=== PATIENT | female | born 1985 | race Caucasian/White ===

== ENCOUNTER 2020-03-21 18:25 | Observation (INO) | payer OTHER ==
[2020-03-21] MEDS ORDERED: SODIUM CHLORIDE 0.9% 500 ML 500 ML IV STA (18:56)
[2020-03-21] MEDS ORDERED: LORazepam 2 MG/ML INJ IV STA ×3 (18:56→23:15)
--- NOTE | 2020-03-21 18:57 | ED ---
General Adult HPI - General Source: patient, RN notes reviewed, old records reviewed Mode of arrival: ambulatory Limitations: no limitations <Damion Estrada - Last Filed: 03/21/20 22:02> <Otilio St - Last Filed: 03/22/20 00:08> - General Chief complaint: Shortness of Breath Stated complaint: Chest pain, side pain Time Seen by Provider: 03/21/20 18:40 - History of Present Illness Initial comments: 34-year-old female presenting for evaluation of dyspnea. Patient has previous, and past medical history including substance abuse, heroin abuse. She admits to recreational marijuana. She states she is feeling quite anxious and having frequent panic attacks. She additionally has a history of pneumothorax status post resection. She also reports a significant weight loss of 60 pounds over the past several months. This was unintentional. She does admit that she was in the psychiatric he for 24 hours with these similar symptoms. (Damion Estrada) - Related Data Home Medications Medication Instructions Recorded Confirmed Unable To Assess [Unable to Assess] 03/21/20 03/21/20 Allergies Allergy/AdvReac Type Severity Reaction Status Date / Time No Known Allergies Allergy Verified 03/21/20 18:29 Review of Systems ROS Other: All systems not noted in ROS Statement are negative. <Damion Estrada - Last Filed: 03/21/20 22:02> ROS Other: All systems not noted in ROS Statement are negative. <Otilio St - Last Filed: 03/22/20 00:08> ROS Statement: Those systems with pertinent positive or pertinent negative responses have been documented in the HPI. Past Medical History Additional Past Medical History / Comment(s): pneumothorax History of Any Multi-Drug Resistant Organisms: None Reported Past Surgical History: Appendectomy Past Psychological History: Anxiety, Panic Disorder, PTSD Smoking Status: Current every day smoker Past Alcohol Use History: None Reported Past Drug Use History: Heroin, Marijuana <Damion Estrada - Last Filed: 03/21/20 22:02> General Exam Limitations: no limitations General appearance: alert, anxious Head exam: Present: atraumatic, normocephalic Eye exam: Present: normal appearance, PERRL Neck exam: Present: normal inspection. Absent: tenderness, meningismus Respiratory exam: Present: normal lung sounds bilaterally. Absent: respiratory distress, wheezes, rales, rhonchi Cardiovascular Exam: Present: normal rhythm, tachycardia GI/Abdominal exam: Present: soft. Absent: distended, tenderness, guarding, rebound Neurological exam: Present: alert, oriented X3, CN II-XII intact. Absent: motor sensory deficit Psychiatric exam: Present: agitated, anxious, suicidal ideation (No suicidal plan but states she cannot imagine living life like this.) Skin exam: Present: warm, dry, intact <Damion Estrada - Last Filed: 03/21/20 22:02> General appearance: alert, appears intoxicated, anxious Head exam: Present: atraumatic, normocephalic, normal inspection Eye exam: Present: normal appearance, PERRL, EOMI. Absent: scleral icterus, conjunctival injection, periorbital swelling ENT exam: Present: normal exam, mucous membranes moist Neck exam: Present: normal inspection. Absent: tenderness, meningismus, lymphadenopathy Respiratory exam: Present: normal lung sounds bilaterally. Absent: respiratory distress, wheezes, rales, rhonchi, stridor Cardiovascular Exam: Present: normal rhythm, tachycardia, normal heart sounds. Absent: systolic murmur, diastolic murmur, rubs, gallop, clicks GI/Abdominal exam: Present: soft, normal bowel sounds. Absent: distended, tenderness, guarding, rebound, rigid Extremities exam: Present: normal inspection, full ROM, normal capillary refill. Absent: tenderness, pedal edema, joint swelling, calf tenderness Back exam: Present: normal inspection Neurological exam: Present: alert, oriented X3, CN II-XII intact Psychiatric exam: Present: agitated, anxious Skin exam: Present: warm, dry, intact, normal color. Absent: rash <Otilio St - Last Filed: 03/22/20 00:08> Course <Damion Estrada - Last Filed: 03/21/20 22:02> <Otilio St - Last Filed: 03/22/20 00:08> Vital Signs 03/21/20 18:29 Temperature 98.3 F Pulse Rate 141 H Respiratory 18 Rate O2 Sat by Pulse 96 Oximetry - Reevaluation(s) Reevaluation #1: 03/21/20 21:26 Patient is hyperverbal, manic, very anxious. Stating she cannot live this way. Her urine drug screen is positive for methamphetamines. Rest of her workup is unremarkable. She has been medically cleared and is currently awaiting EPS evaluation. (Damion Estrada) Reevaluation #2: 03/21/20 2300 Patient has made comments of suicidal ideation to both myself and nursing staff. She will be petitioned and will require EPS evaluation. Case is signed out to Dr. St (Damion Estrada) Reevaluation #3: 03/22/20 00:06 Patient remained significantly altered and difficult to redirect, remains persistently tachycardic with altered mental status and agitated behavior (Otilio St) EKG Findings - EKG Comments: EKG Findings:: EKG: Sinus tachycardia, right atrial enlargement, rate of 106, NE interval 150, QRS duration 84, QTC 488 <Damion Estrada - Last Filed: 03/21/20 22:02> Medical Decision Making - Lab Data Result diagrams: 03/21/20 19:34 03/21/20 19:34 <Damion Estrada - Last Filed: 03/21/20 22:02> - Lab Data Result diagrams: 03/21/20 19:34 03/21/20 19:34 - Radiology Data Radiology results: report reviewed (Chest x-rays negative for acute disease), image reviewed <Otilio St - Last Filed: 03/22/20 00:08> - Medical Decision Making 34 female to be admitted on a medical abdomen with psychiatric consultation regarding significant polysubstance abuse overdose persistent tachycardia admitted for continued hydration and cardiopulmonary monitoring (Otilio St) - Lab Data Lab Results 03/21/20 03/21/20 03/21/20 Range/Units 19:34 19:34 19:34 WBC 11.2 H (3.8-10.6) k/uL RBC 5.54 H (3.80-5.40) m/uL Hgb 16.7 H (11.4-16.0) gm/dL Hct 49.8 H (34.0-46.0) % MCV 89.8 (80.0-100.0) fL MCH 30.2 (25.0-35.0) pg MCHC 33.6 (31.0-37.0) g/dL RDW 12.4 (11.5-15.5) % Plt Count 297 (150-450) k/uL Neutrophils % 63 % Lymphocytes % 28 % Monocytes % 6 % Eosinophils % 1 % Basophils % 1 % Neutrophils # 7.0 (1.3-7.7) k/uL Lymphocytes # 3.1 (1.0-4.8) k/uL Monocytes # 0.7 (0-1.0) k/uL Eosinophils # 0.2 (0-0.7) k/uL Basophils # 0.1 (0-0.2) k/uL PT 10.0 (9.0-12.0) sec INR 1.0 (<1.2) APTT 22.7 (22.0-30.0) sec D-Dimer 0.23 (<0.60) mg/L FEU Sodium 140 (137-145) mmol/L Potassium 3.9 (3.5-5.1) mmol/L Chloride 102 (98-107) mmol/L Carbon Dioxide 25 (22-30) mmol/L Anion Gap 13 mmol/L BUN 22 H (7-17) mg/dL Creatinine 0.73 (0.52-1.04) mg/dL Est GFR (CKD-EPI)AfAm >90 (>60 ml/min/1.73 sqM) Est GFR (CKD-EPI)NonAf >90 (>60 ml/min/1.73 sqM) Glucose 95 (74-99) mg/dL Plasma Lactic Acid Navin (0.7-2.0) mmol/L Calcium 10.9 H (8.4-10.2) mg/dL Magnesium 1.9 (1.6-2.3) mg/dL Total Bilirubin 0.9 (0.2-1.3) mg/dL AST 26 (14-36) U/L ALT 15 (4-34) U/L Alkaline Phosphatase 68 (38-126) U/L Troponin I (0.000-0.034) ng/mL Total Protein 9.3 H (6.3-8.2) g/dL Albumin 5.3 H (3.5-5.0) g/dL Urine Color Urine Appearance (Clear) Urine pH (5.0-8.0) Ur Specific [place] (1.001-1.035) Urine Protein (Negative) Urine Glucose (UA) (Negative) Urine Ketones (Negative) Urine Blood (Negative) Urine Nitrite (Negative) Urine Bilirubin (Negative) Urine Urobilinogen (<2.0) mg/dL Ur Leukocyte Esterase (Negative) Urine RBC (0-5) /hpf Urine WBC (0-5) /hpf Ur Squamous Epith Cells (0-4) /hpf Hyaline Casts (0-2) /lpf Urine Mucus (None) /hpf Urine HCG, Qual (Not Detectd) Urine Opiates Screen (NotDetected) Ur Oxycodone Screen (NotDetected) Urine Methadone Screen (NotDetected) Ur Propoxyphene Screen (NotDetected) Ur Barbiturates Screen (NotDetected) U Tricyclic Antidepress (NotDetected) Ur Phencyclidine Scrn (NotDetected) Ur Amphetamines Screen (NotDetected) U Methamphetamines Scrn (NotDetected) U Benzodiazepines Scrn (NotDetected) Urine Cocaine Screen (NotDetected) U Marijuana (THC) Screen (NotDetected) Serum Alcohol <10 mg/dL 03/21/20 03/21/20 03/21/20 Range/Units 19:34 19:34 19:34 WBC (3.8-10.6) k/uL RBC (3.80-5.40) m/uL Hgb (11.4-16.0) gm/dL Hct (34.0-46.0) % MCV (80.0-100.0) fL MCH (25.0-35.0) pg MCHC (31.0-37.0) g/dL RDW (11.5-15.5) % Plt Count (150-450) k/uL Neutrophils % % Lymphocytes % % Monocytes % % Eosinophils % % Basophils % % Neutrophils # (1.3-7.7) k/uL Lymphocytes # (1.0-4.8) k/uL Monocytes # (0-1.0) k/uL Eosinophils # (0-0.7) k/uL Basophils # (0-0.2) k/uL PT (9.0-12.0) sec INR (<1.2) APTT (22.0-30.0) sec D-Dimer (<0.60) mg/L FEU Sodium (137-145) mmol/L Potassium (3.5-5.1) mmol/L Chloride (98-107) mmol/L Carbon Dioxide (22-30) mmol/L Anion Gap mmol/L BUN (7-17) mg/dL Creatinine (0.52-1.04) mg/dL Est GFR (CKD-EPI)AfAm (>60 ml/min/1.73 sqM) Est GFR (CKD-EPI)NonAf (>60 ml/min/1.73 sqM) Glucose (74-99) mg/dL Plasma Lactic Acid Navin 1.5 (0.7-2.0) mmol/L Calcium (8.4-10.2) mg/dL Magnesium (1.6-2.3) mg/dL Total Bilirubin (0.2-1.3) mg/dL AST (14-36) U/L ALT (4-34) U/L Alkaline Phosphatase (38-126) U/L Troponin I 0.014 (0.000-0.034) ng/mL Total Protein (6.3-8.2) g/dL Albumin (3.5-5.0) g/dL Urine Color Yellow Urine Appearance Cloudy H (Clear) Urine pH 6.0 (5.0-8.0) Ur Specific [place] 1.033 (1.001-1.035) Urine Protein 1+ H (Negative) Urine Glucose (UA) Negative (Negative) Urine Ketones 2+ H (Negative) Urine Blood Moderate H (Negative) Urine Nitrite Negative (Negative) Urine Bilirubin Negative (Negative) Urine Urobilinogen 3.0 (<2.0) mg/dL Ur Leukocyte Esterase Negative (Negative) Urine RBC 9 H (0-5) /hpf Urine WBC 7 H (0-5) /hpf Ur Squamous Epith Cells 4 (0-4) /hpf Hyaline Casts 7 H (0-2) /lpf Urine Mucus Many H (None) /hpf Urine HCG, Qual (Not Detectd) Urine Opiates Screen Not Detected (NotDetected) Ur Oxycodone Screen Not Detected (NotDetected) Urine Methadone Screen Not Detected (NotDetected) Ur Propoxyphene Screen Not Detected (NotDetected) Ur Barbiturates Screen Not Detected (NotDetected) U Tricyclic Antidepress Detected H (NotDetected) Ur Phencyclidine Scrn Not Detected (NotDetected) Ur Amphetamines Screen Detected H (NotDetected) U Methamphetamines Scrn Detected H (NotDetected) U Benzodiazepines Scrn Detected H (NotDetected) Urine Cocaine Screen Not Detected (NotDetected) U Marijuana (THC) Screen Detected H (NotDetected) Serum Alcohol mg/dL 03/21/20 Range/Units 19:34 WBC (3.8-10.6) k/uL RBC (3.80-5.40) m/uL Hgb (11.4-16.0) gm/dL Hct (34.0-46.0) % MCV (80.0-100.0) fL MCH (25.0-35.0) pg MCHC (31.0-37.0) g/dL RDW (11.5-15.5) % Plt Count (150-450) k/uL Neutrophils % % Lymphocytes % % Monocytes % % Eosinophils % % Basophils % % Neutrophils # (1.3-7.7) k/uL Lymphocytes # (1.0-4.8) k/uL Monocytes # (0-1.0) k/uL Eosinophils # (0-0.7) k/uL Basophils # (0-0.2) k/uL PT (9.0-12.0) sec INR (<1.2) APTT (22.0-30.0) sec D-Dimer (<0.60) mg/L FEU Sodium (137-145) mmol/L Potassium (3.5-5.1) mmol/L Chloride (98-107) mmol/L Carbon Dioxide (22-30) mmol/L Anion Gap mmol/L BUN (7-17) mg/dL Creatinine (0.52-1.04) mg/dL Est GFR (CKD-EPI)AfAm (>60 ml/min/1.73 sqM) Est GFR (CKD-EPI)NonAf (>60 ml/min/1.73 sqM) Glucose (74-99) mg/dL Plasma Lactic Acid Navin (0.7-2.0) mmol/L Calcium (8.4-10.2) mg/dL Magnesium (1.6-2.3) mg/dL Total Bilirubin (0.2-1.3) mg/dL AST (14-36) U/L ALT (4-34) U/L Alkaline Phosphatase (38-126) U/L Troponin I (0.000-0.034) ng/mL Total Protein (6.3-8.2) g/dL Albumin (3.5-5.0) g/dL Urine Color Urine Appearance (Clear) Urine pH (5.0-8.0) Ur Specific [place] (1.001-1.035) Urine Protein (Negative) Urine Glucose (UA) (Negative) Urine Ketones (Negative) Urine Blood (Negative) Urine Nitrite (Negative) Urine Bilirubin (Negative) Urine Urobilinogen (<2.0) mg/dL Ur Leukocyte Esterase (Negative) Urine RBC (0-5) /hpf Urine WBC (0-5) /hpf Ur Squamous Epith Cells (0-4) /hpf Hyaline Casts (0-2) /lpf Urine Mucus (None) /hpf Urine HCG, Qual Not Detected (Not Detectd) Urine Opiates Screen (NotDetected) Ur Oxycodone Screen (NotDetected) Urine Methadone Screen (NotDetected) Ur Propoxyphene Screen (NotDetected) Ur Barbiturates Screen (NotDetected) U Tricyclic Antidepress (NotDetected) Ur Phencyclidine Scrn (NotDetected) Ur Amphetamines Screen (NotDetected) U Methamphetamines Scrn (NotDetected) U Benzodiazepines Scrn (NotDetected) Urine Cocaine Screen (NotDetected) U Marijuana (THC) Screen (NotDetected) Serum Alcohol mg/dL Disposition <Damion Estrada N - Last Filed: 03/21/20 22:02> Is patient prescribed a controlled substance at d/c from ED?: No <Otilio St - Last Filed: 03/22/20 00:08> Clinical Impression: Acute anxiety, Suicidal ideation, Depression, Drug-induced psychotic disorder, Acute psychosis, Tachycardia, Altered mental state Disposition: ADMITTED IP TO THIS [facility] Condition: Fair Referrals: None,Stated [Primary Care Provider] - 1-2 days
[2020-03-21 19:46] LABS: Basophils # (A) 0.1 k/uL (0-0.2); Basophils % (A) 1 %; Eosinophils # (A) 0.2 k/uL (0-0.7); Eosinophils % (A) 1 %; HCT 49.8 % (34.0-46.0); HGB 16.7 gm/dL (11.4-16.0); Lymphocytes # (A) 3.1 k/uL (1.0-4.8); Lymphocytes % (A) 28 %; MCH 30.2 pg (25.0-35.0); MCHC 33.6 g/dL (31.0-37.0); MCV 89.8 fL (80.0-100.0); Mean Platelet Volume 6.9; Monocytes # (A) 0.7 k/uL (0-1.0); Monocytes % (A) 6 %; Neutrophils % (A) 63 %; Platelet Count 297 k/uL (150-450); RBC 5.54 m/uL (3.80-5.40); RDW 12.4 % (11.5-15.5); WBC 11.2 k/uL (3.8-10.6)
[2020-03-21 19:57] LABS: ALT 15 U/L (4-34); AST 26 U/L (14-36); African American GFR (CKD) >90 (>60 ml/min/1.73 sqM); Albumin 5.3 g/dL (3.5-5.0); Alcohol <10 mg/dL; Alkaline Phosphatase 68 U/L (38-126); Anion Gap 13 mmol/L; Blood Urea Nitrogen 22 mg/dL (7-17); Calcium 10.9 mg/dL (8.4-10.2); Carbon Dioxide 25 mmol/L (22-30); Chloride 102 mmol/L (98-107); Glucose 95 mg/dL (74-99); Magnesium 1.9 mg/dL (1.6-2.3); Non-African American GFR(CKD) >90 (>60 ml/min/1.73 sqM); Potassium 3.9 mmol/L (3.5-5.1); Sodium 140 mmol/L (137-145); Total Bilirubin 0.9 mg/dL (0.2-1.3); Total Protein 9.3 g/dL (6.3-8.2)
[2020-03-21 20:01] LABS: D-Dimer 0.23 mg/L FEU (<0.60); Partial Thromboplastin Time 22.7 sec (22.0-30.0)
--- NOTE | 2020-03-21 20:07 | XR ---
EXAMINATION TYPE: XR chest 2V DATE OF EXAM: 03/21/2020 COMPARISON: NONE HISTORY: Short of breath TECHNIQUE: 2 views FINDINGS: Heart is normal. There are no hilar masses. Mediastinum is normal. I see no definite pulmon robby infiltrate. There is slight blunting right costophrenic angle. IMPRESSION: There are some pleural reaction on the right side in the right middle lobe. No pulmonary consolidation. Normal heart.
[2020-03-21 20:25] LABS: Appearance,Urine Cloudy (Clear); Bilirubin,Urine Negative (Negative); Blood,Urine Moderate (Negative); Color,Urine Yellow; Glucose,Urine (UA) Negative (Negative); Hyaline Casts,Urine 7 /lpf (0-2); Ketones,Urine 2+ (Negative); Leukocyte Esterase,Urine Negative (Negative); Mucus,Urine Many /hpf; Nitrite,Urine Negative (Negative); Protein,Urine 1+ (Negative); RBC,Urine 9 /hpf (0-5); Specific Gravity,Urine 1.033 (1.001-1.035); Squamous Epithelial Cell,Urine 4 /hpf (0-4); WBC,Urine 7 /hpf (0-5)
[2020-03-21 20:27] LABS: Amphetamine Screen,Urine Detected (NotDetected); Barbiturate Screen,Urine Not Detected (NotDetected); Benzodiazepines Screen,Urine Detected (NotDetected); Cocaine Screen,Urine Not Detected (NotDetected); Methadone Screen, Urine Not Detected (NotDetected); Opiate Screen,Urine Not Detected (NotDetected); Oxycodone Screen, Urine Not Detected (NotDetected); Phencyclidine Screen,Urine Not Detected (NotDetected); Tricyclic Antidepressant,Urine Detected (NotDetected); Urn Cannabinoid Scrn Detected (NotDetected)
[2020-03-21] MEDS ORDERED: SODIUM CHLORIDE 0.9% 500 ML 500 ML IV ONE (21:18)
[2020-03-21] MEDS ORDERED: SODIUM CHLORIDE 0.9% 1,000 ML IV STA (23:16)
[2020-03-22] MEDS ORDERED: THIAMINE 100 MG/ML 2 ML VIAL IM STA (00:03)
[2020-03-22] MEDS ORDERED: LORazepam 2 MG/ML INJ IV PRN ×3 (00:03)
[2020-03-22] MEDS ORDERED: SODIUM CHLORIDE 0.9% 1,000 ML IV ONE (00:03)
[2020-03-22] MEDS ORDERED: DIAZEPAM 5 MG/ML 2 ML INJ IVP PRN (00:03)
[2020-03-22] MEDS ORDERED: haloperidoL 5 MG TAB PO STA (04:27)
[2020-03-22] MEDS ORDERED: ZIPRASIDONE 20 MG VIAL IM STA (04:52)
--- NOTE | 2020-03-22 06:50 | ED ---
Medical Decision Making - Medical Decision Making 34-year-old female date ER for evaluation by psychiatry, patient was admitted for overdose, persistent tachycardia and altered mental status. Prior to being admitted and placed patient did have loss worsening psychiatric outbreak require both,: Mechanical sedation this is documentation of history - Lab Data Result diagrams: 03/21/20 19:34 03/21/20 19:34 Lab Results 03/21/20 03/21/20 03/21/20 Range/Units 19:34 19:34 19:34 WBC 11.2 H (3.8-10.6) k/uL RBC 5.54 H (3.80-5.40) m/uL Hgb 16.7 H (11.4-16.0) gm/dL Hct 49.8 H (34.0-46.0) % MCV 89.8 (80.0-100.0) fL MCH 30.2 (25.0-35.0) pg MCHC 33.6 (31.0-37.0) g/dL RDW 12.4 (11.5-15.5) % Plt Count 297 (150-450) k/uL Neutrophils % 63 % Lymphocytes % 28 % Monocytes % 6 % Eosinophils % 1 % Basophils % 1 % Neutrophils # 7.0 (1.3-7.7) k/uL Lymphocytes # 3.1 (1.0-4.8) k/uL Monocytes # 0.7 (0-1.0) k/uL Eosinophils # 0.2 (0-0.7) k/uL Basophils # 0.1 (0-0.2) k/uL PT 10.0 (9.0-12.0) sec INR 1.0 (<1.2) APTT 22.7 (22.0-30.0) sec D-Dimer 0.23 (<0.60) mg/L FEU Sodium 140 (137-145) mmol/L Potassium 3.9 (3.5-5.1) mmol/L Chloride 102 (98-107) mmol/L Carbon Dioxide 25 (22-30) mmol/L Anion Gap 13 mmol/L BUN 22 H (7-17) mg/dL Creatinine 0.73 (0.52-1.04) mg/dL Est GFR (CKD-EPI)AfAm >90 (>60 ml/min/1.73 sqM) Est GFR (CKD-EPI)NonAf >90 (>60 ml/min/1.73 sqM) Glucose 95 (74-99) mg/dL Plasma Lactic Acid Navin (0.7-2.0) mmol/L Calcium 10.9 H (8.4-10.2) mg/dL Magnesium 1.9 (1.6-2.3) mg/dL Total Bilirubin 0.9 (0.2-1.3) mg/dL AST 26 (14-36) U/L ALT 15 (4-34) U/L Alkaline Phosphatase 68 (38-126) U/L Troponin I (0.000-0.034) ng/mL Total Protein 9.3 H (6.3-8.2) g/dL Albumin 5.3 H (3.5-5.0) g/dL Urine Color Urine Appearance (Clear) Urine pH (5.0-8.0) Ur Specific [place] (1.001-1.035) Urine Protein (Negative) Urine Glucose (UA) (Negative) Urine Ketones (Negative) Urine Blood (Negative) Urine Nitrite (Negative) Urine Bilirubin (Negative) Urine Urobilinogen (<2.0) mg/dL Ur Leukocyte Esterase (Negative) Urine RBC (0-5) /hpf Urine WBC (0-5) /hpf Ur Squamous Epith Cells (0-4) /hpf Hyaline Casts (0-2) /lpf Urine Mucus (None) /hpf Urine HCG, Qual (Not Detectd) Urine Opiates Screen (NotDetected) Ur Oxycodone Screen (NotDetected) Urine Methadone Screen (NotDetected) Ur Propoxyphene Screen (NotDetected) Ur Barbiturates Screen (NotDetected) U Tricyclic Antidepress (NotDetected) Ur Phencyclidine Scrn (NotDetected) Ur Amphetamines Screen (NotDetected) U Methamphetamines Scrn (NotDetected) U Benzodiazepines Scrn (NotDetected) Urine Cocaine Screen (NotDetected) U Marijuana (THC) Screen (NotDetected) Serum Alcohol <10 mg/dL 03/21/20 03/21/20 03/21/20 Range/Units 19:34 19:34 19:34 WBC (3.8-10.6) k/uL RBC (3.80-5.40) m/uL Hgb (11.4-16.0) gm/dL Hct (34.0-46.0) % MCV (80.0-100.0) fL MCH (25.0-35.0) pg MCHC (31.0-37.0) g/dL RDW (11.5-15.5) % Plt Count (150-450) k/uL Neutrophils % % Lymphocytes % % Monocytes % % Eosinophils % % Basophils % % Neutrophils # (1.3-7.7) k/uL Lymphocytes # (1.0-4.8) k/uL Monocytes # (0-1.0) k/uL Eosinophils # (0-0.7) k/uL Basophils # (0-0.2) k/uL PT (9.0-12.0) sec INR (<1.2) APTT (22.0-30.0) sec D-Dimer (<0.60) mg/L FEU Sodium (137-145) mmol/L Potassium (3.5-5.1) mmol/L Chloride (98-107) mmol/L Carbon Dioxide (22-30) mmol/L Anion Gap mmol/L BUN (7-17) mg/dL Creatinine (0.52-1.04) mg/dL Est GFR (CKD-EPI)AfAm (>60 ml/min/1.73 sqM) Est GFR (CKD-EPI)NonAf (>60 ml/min/1.73 sqM) Glucose (74-99) mg/dL Plasma Lactic Acid Navin 1.5 (0.7-2.0) mmol/L Calcium (8.4-10.2) mg/dL Magnesium (1.6-2.3) mg/dL Total Bilirubin (0.2-1.3) mg/dL AST (14-36) U/L ALT (4-34) U/L Alkaline Phosphatase (38-126) U/L Troponin I 0.014 (0.000-0.034) ng/mL Total Protein (6.3-8.2) g/dL Albumin (3.5-5.0) g/dL Urine Color Yellow Urine Appearance Cloudy H (Clear) Urine pH 6.0 (5.0-8.0) Ur Specific [place] 1.033 (1.001-1.035) Urine Protein 1+ H (Negative) Urine Glucose (UA) Negative (Negative) Urine Ketones 2+ H (Negative) Urine Blood Moderate H (Negative) Urine Nitrite Negative (Negative) Urine Bilirubin Negative (Negative) Urine Urobilinogen 3.0 (<2.0) mg/dL Ur Leukocyte Esterase Negative (Negative) Urine RBC 9 H (0-5) /hpf Urine WBC 7 H (0-5) /hpf Ur Squamous Epith Cells 4 (0-4) /hpf Hyaline Casts 7 H (0-2) /lpf Urine Mucus Many H (None) /hpf Urine HCG, Qual (Not Detectd) Urine Opiates Screen Not Detected (NotDetected) Ur Oxycodone Screen Not Detected (NotDetected) Urine Methadone Screen Not Detected (NotDetected) Ur Propoxyphene Screen Not Detected (NotDetected) Ur Barbiturates Screen Not Detected (NotDetected) U Tricyclic Antidepress Detected H (NotDetected) Ur Phencyclidine Scrn Not Detected (NotDetected) Ur Amphetamines Screen Detected H (NotDetected) U Methamphetamines Scrn Detected H (NotDetected) U Benzodiazepines Scrn Detected H (NotDetected) Urine Cocaine Screen Not Detected (NotDetected) U Marijuana (THC) Screen Detected H (NotDetected) Serum Alcohol mg/dL 03/21/20 Range/Units 19:34 WBC (3.8-10.6) k/uL RBC (3.80-5.40) m/uL Hgb (11.4-16.0) gm/dL Hct (34.0-46.0) % MCV (80.0-100.0) fL MCH (25.0-35.0) pg MCHC (31.0-37.0) g/dL RDW (11.5-15.5) % Plt Count (150-450) k/uL Neutrophils % % Lymphocytes % % Monocytes % % Eosinophils % % Basophils % % Neutrophils # (1.3-7.7) k/uL Lymphocytes # (1.0-4.8) k/uL Monocytes # (0-1.0) k/uL Eosinophils # (0-0.7) k/uL Basophils # (0-0.2) k/uL PT (9.0-12.0) sec INR (<1.2) APTT (22.0-30.0) sec D-Dimer (<0.60) mg/L FEU Sodium (137-145) mmol/L Potassium (3.5-5.1) mmol/L Chloride (98-107) mmol/L Carbon Dioxide (22-30) mmol/L Anion Gap mmol/L BUN (7-17) mg/dL Creatinine (0.52-1.04) mg/dL Est GFR (CKD-EPI)AfAm (>60 ml/min/1.73 sqM) Est GFR (CKD-EPI)NonAf (>60 ml/min/1.73 sqM) Glucose (74-99) mg/dL Plasma Lactic Acid Navin (0.7-2.0) mmol/L Calcium (8.4-10.2) mg/dL Magnesium (1.6-2.3) mg/dL Total Bilirubin (0.2-1.3) mg/dL AST (14-36) U/L ALT (4-34) U/L Alkaline Phosphatase (38-126) U/L Troponin I (0.000-0.034) ng/mL Total Protein (6.3-8.2) g/dL Albumin (3.5-5.0) g/dL Urine Color Urine Appearance (Clear) Urine pH (5.0-8.0) Ur Specific [place] (1.001-1.035) Urine Protein (Negative) Urine Glucose (UA) (Negative) Urine Ketones (Negative) Urine Blood (Negative) Urine Nitrite (Negative) Urine Bilirubin (Negative) Urine Urobilinogen (<2.0) mg/dL Ur Leukocyte Esterase (Negative) Urine RBC (0-5) /hpf Urine WBC (0-5) /hpf Ur Squamous Epith Cells (0-4) /hpf Hyaline Casts (0-2) /lpf Urine Mucus (None) /hpf Urine HCG, Qual Not Detected (Not Detectd) Urine Opiates Screen (NotDetected) Ur Oxycodone Screen (NotDetected) Urine Methadone Screen (NotDetected) Ur Propoxyphene Screen (NotDetected) Ur Barbiturates Screen (NotDetected) U Tricyclic Antidepress (NotDetected) Ur Phencyclidine Scrn (NotDetected) Ur Amphetamines Screen (NotDetected) U Methamphetamines Scrn (NotDetected) U Benzodiazepines Scrn (NotDetected) Urine Cocaine Screen (NotDetected) U Marijuana (THC) Screen (NotDetected) Serum Alcohol mg/dL Disposition Clinical Impression: Acute anxiety, Suicidal ideation, Depression, Drug-induced psychotic disorder, Acute psychosis, Tachycardia, Altered mental state Disposition: ADMITTED IP TO THIS [facility] Condition: Fair Is patient prescribed a controlled substance at d/c from ED?: No Procedures - Restraint - Face to Face Restraint Occurrence 1 Patient's Immediate Situation: Endangers self safety, Endangers others' safety, Endangers staff safety, Violent behavior Patient's Reaction to the Intervention: Uncooperative, Angry, Belligerent, Anxious, Bizarre, Aggressive, Combative Patient's Medical & Behavioral Condition: Anxious, Agitated, Manic, Flight of ideas, Bizarre behavior Need to Continue or Terminate Restraint or Seclusion: Continue Face to Face Eval of Restraint Date: 03/22/20 Face to Face Eval of Restraint Time: 04:55
[2020-03-22 07:15] VITALS: RESP 18
--- NOTE | 2020-03-22 10:46 | P.HPIM ---
History of Present Illness 34-year-old female presenting for evaluation of dyspnea. Patient has previous, and past medical history including substance abuse, heroin abuse. She admits to recreational marijuana. She states she is feeling quite anxious and having frequent panic attacks. She additionally has a history of pneumothorax status post resection. She also reports a significant weight loss of 60 pounds over the past several months. This was unintentional. She does admit that she was in the psychiatric he for 24 hours with these similar symptoms. Patient also underwent a palpitations patient had sinus tachycardia yesterday which improved at this time patient is still hyper. Patient's drug screen is positive for a Adderall marijuana, tricyclic antidepressants. Patient admitted admit to using marijuana which she says has Adderall too. Patient has one-on-one sitter apparently because of her suicide ideation although she denied any such symptoms to me. I was told by the nursing staff she was petitioned by her /boyfriend. She does have leukocytosis but denied any fever chills denied any dysuria UA is not significant for UTI chest x-ray did not show any pneumonia. No evidence of infection at this time Review of Systems REVIEW OF SYSTEMS: CONSTITUTIONAL: No fever, no malaise, no fatigue. HEENT: No recent visual problems or hearing problems. Denied any sore throat. CARDIOVASCULAR: No chest pain, orthopnea, PND, no syncope. PULMONARY: No shortness of breath, no cough, no hemoptysis. GASTROINTESTINAL: No diarrhea, no nausea, no vomiting, no abdominal pain. NEUROLOGICAL: No headaches, no weakness, no numbness. HEMATOLOGICAL: Denies any bleeding or petechiae. GENITOURINARY: Denies any burning micturition, frequency, or urgency. MUSCULOSKELETAL/RHEUMATOLOGICAL: Denies any joint pain, swelling, or any muscle pain. ENDOCRINE: Denies any polyuria or polydipsia. The rest of the 14-point review of systems is negative. Past Medical History Additional Past Medical History / Comment(s): pneumothorax History of Any Multi-Drug Resistant Organisms: None Reported Past Surgical History: Appendectomy Past Psychological History: Anxiety, Panic Disorder, PTSD Smoking Status: Current every day smoker Past Alcohol Use History: None Reported Past Drug Use History: Heroin, Marijuana Medications and Allergies Home Medications Medication Instructions Recorded Confirmed Type Buprenorphine HCl/Naloxone HCl 1 film SUBLINGUAL BID 03/22/20 03/22/20 History [Suboxone 8 mg-2 mg Sl Film] Dextroamphetamine/Amphetamine 20 mg PO BID 03/22/20 03/22/20 History [Adderall] diazePAM [Valium] 5 mg PO BID 03/22/20 03/22/20 History Allergies Allergy/AdvReac Type Severity Reaction Status Date / Time No Known Allergies Allergy Verified 03/21/20 18:29 Physical Exam Vitals: Vital Signs Temp Pulse Resp BP Pulse Ox 03/22/20 07:13 98 18 131/80 99 03/22/20 03:08 147 H 17 97 03/22/20 00:00 98.1 F 155 H 24 134/94 99 03/21/20 18:29 98.3 F 141 H 18 96 Intake and Output 03/21/20 03/22/20 03/22/20 22:59 06:59 14:59 Other: Weight 63.503 kg PHYSICAL EXAMINATION: GENERAL: The patient is alert and oriented x3, not in any acute distress. Well developed, well nourished. Patient appears to be bit manic HEENT: Pupils are round and equally reacting to light. EOMI. No scleral icterus. No conjunctival pallor. Normocephalic, atraumatic. No pharyngeal erythema. No thyromegaly. CARDIOVASCULAR: S1 and S2 present. No murmurs, rubs, or gallops. PULMONARY: Chest is clear to auscultation, no wheezing or crackles. ABDOMEN: Soft, nontender, nondistended, normoactive bowel sounds. No palpable organomegaly. MUSCULOSKELETAL: No joint swelling or deformity. EXTREMITIES: No cyanosis, clubbing, or pedal edema. NEUROLOGICAL: Gross neurological examination did not reveal any focal deficits. SKIN: No rashes. Results CBC & Chem 7: 03/21/20 19:34 03/21/20 19:34 Labs: Abnormal Lab Results - Last 24 Hours (Table) 03/21/20 03/21/20 03/21/20 Range/Units 19:34 19:34 19:34 WBC 11.2 H (3.8-10.6) k/uL RBC 5.54 H (3.80-5.40) m/uL Hgb 16.7 H (11.4-16.0) gm/dL Hct 49.8 H (34.0-46.0) % BUN 22 H (7-17) mg/dL Calcium 10.9 H (8.4-10.2) mg/dL Total Protein 9.3 H (6.3-8.2) g/dL Albumin 5.3 H (3.5-5.0) g/dL Urine Appearance Cloudy H (Clear) Urine Protein 1+ H (Negative) Urine Ketones 2+ H (Negative) Urine Blood Moderate H (Negative) Urine RBC 9 H (0-5) /hpf Urine WBC 7 H (0-5) /hpf Hyaline Casts 7 H (0-2) /lpf Urine Mucus Many H (None) /hpf U Tricyclic Antidepress Detected H (NotDetected) Ur Amphetamines Screen Detected H (NotDetected) U Methamphetamines Scrn Detected H (NotDetected) U Benzodiazepines Scrn Detected H (NotDetected) U Marijuana (THC) Screen Detected H (NotDetected) Assessment and Plan Plan: -Drug overdose: Patient is a still bit manic because of the drug abuse with amphetamines and the marijuana. Patient is alert oriented 3 if cleared by psychiatry patient can be discharged home no evidence of infection at this time. Patient denied any suicidal ideations to me. Patient presently has one-on-one sitter and psychiatry will evaluate the patient. -Ruled out sepsis/infection. -Tachycardia secondary to drug abuse -History of hepatitis C with the history of IV heroin use in the past patient used to follow up with physician for hepatitis C and had a hydrocele load was undetectable patient doesn't follow with any physician in the town will be referred to gastroenterology here in the town for treatment of hepatitis C. Patient will be referred to PCP as well she says she doesn't have a PCP here. Patient is on Suboxone -Leukocytosis: Reactive without any evidence of infection
--- NOTE | 2020-03-22 10:46 | P.DS ---
Providers Date of admission: 03/22/20 00:05 Attending physician: Linda Fernandez Consults: 03/22/20 00:03 Consult Physician Routine Consulting Provider: John Zelaya Consult Reason/Comments: ams,abuse Do you want consulting provider notified?: Yes Primary care physician: Stated None Hospital Course: Please refer to my HPI for further details Patient Condition at Discharge: Fair Plan - Discharge Summary New Discharge Prescriptions: No Action diazePAM [Valium] 5 mg PO BID Buprenorphine HCl/Naloxone HCl [Suboxone 8 mg-2 mg Sl Film] 1 film SUBLINGUAL BID Dextroamphetamine/Amphetamine [Adderall] 20 mg PO BID Discharge Medication List Buprenorphine HCl/Naloxone HCl [Suboxone 8 mg-2 mg Sl Film] 1 film SUBLINGUAL BID 03/22/20 [History] Dextroamphetamine/Amphetamine [Adderall] 20 mg PO BID 03/22/20 [History] diazePAM [Valium] 5 mg PO BID 03/22/20 [History] Follow up Appointment(s)/Referral(s): Davian Thakkar MD [REFERRING] - 1 Week Shanika Martinez MD [STAFF PHYSICIAN] - 1 Week Kell Dunn MD [STAFF PHYSICIAN] - 1 Week Discharge Disposition: HOME SELF-CARE
[2020-03-22] MEDS ORDERED: BUPRENORPHINE HCL SUBLINGUAL SCH (11:00)
[2020-03-22] MEDS ORDERED: NALOXONE HCL SUBLINGUAL SCH (11:00)
[2020-03-22 11:35] VITALS: BP 110/84; PULSE 86; TEMP 97.5
--- NOTE | 2020-03-22 12:51 | CONS ---
CONSULTATION REASON FOR CONSULTATION: Altered mental status, abuse. HISTORY OF PRESENT ILLNESS: The patient is a 34 female currently unemployed, presented to the ER with complaint of shortness of breath. She stated that she has been having very high anxiety and frequent panic attacks and she has been smoking marijuana on daily basis to help her anxiety. She denied feeling of hopeless or helpless. She denied any psychotic feature. She was hyperverbal with severe psychomotor agitation, but easy to redirect. She stated that she does not use anything except smoking marijuana and she is on Suboxone. However, when I did confront her with her urine drug screen that is positive for benzodiazepine, methamphetamine and amphetamine, tricyclic antidepression in addition to the marijuana, she stated "I am sure that someone sprayed my marijuana with methamphetamine." She stated that she used to get Adderall from Dr. Thakkar for her attention deficit, but in December of 2019 he did discharge her from his office. According to her, he was giving her a combination of Suboxone and Valium and the last time she was seen by Dr. Thakkar, it was in December of 2019. The patient stated that she did find a psychiatrist, Dr. Garcia in [place] and she saw him a couple of times, but she said "he just giving me BuSpar for anxiety and Suboxone, but I want him to give me low dose of Valium." PAST PSYCHIATRIC HISTORY: She denied any previous outpatient or inpatient for mental health, but she stated that she went to [facility] one night in December of 2019, "nervous breakdown because I could not sleep for 6 weeks in a row." She stated that she was discharged after 24 hours from the observation and I did refer her to [facility], but she said that she did not follow through because "I prefer to go to private psychiatrist." FAMILY HISTORY: Chemical dependence and mental illness. Mother taking Percocet for 25 years. Brother has severe anxiety. SUBSTANCE ABUSE HISTORY: Extensive substance abuse history: 1. Heroin: It is her drug of choice. She started at age 15 and she was using it on daily basis, snorting and IV until age 22. Then she ended up in half-way. She was court-ordered to go to rehab. She was clean from age 22, until 28, then she relapse again for 1 year and she has been on Suboxone for 4 or 5 years. 2. Crack cocaine: She used to do crack cocaine from age 14 until 16.. 3. Marijuana: She started smoking marijuana at age 12 and she has been smoking marijuana on a daily basis. 4. Adderall: He stated that for 1 year, she has been on Adderall prescribed by Dr. Thakkra. When I did ask her the last prescription was in December and she stated that she does not know how she got positive for amphetamine and methamphetamine. She denied any methamphetamine use, but it seems to me that she has been using this on and off for at least 4 or 5 months and that is why she has been losing a lot of weight. She claims that she is thinking that someone sprayed her marijuana with methamphetamine. 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 However, due to her drug addiction, she ended up in hospice care, but she has been unemployed since November of 2019. 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 The patient lost custody of her 2 children in 2014 due to her addiction. She has a son who is 16 and daughter who is 5 years of age. She is able to have visitation with the son, however, she did not see her daughter for almost one year. She has been for the last 2 years. She stated that she met him in a recovery group as he is a heroin addict in recovery. MENTAL STATUS EXAMINATION: The patient appears her stated age. She is very friendly. There is psychomotor agitation, pleasant, very grandeur. She is trying to be cooperative. She appears to have fair hygiene and grooming, wearing hospital gown with good eye contact. Her speech is spontaneous, increased in productivity and her thought content is circumstantial with loose of association. She reported that her mood is okay, but "I am very nervous person and I need some Valium." Affect is euphoric. She denied having any suicidal or homicidal ideation, intent, or plan. She denied any visual or auditory hallucination. She denied any delusional thinking. Her memory and concentration grossly intact. Her insight and judgment are fair. However, her insight to her long history of addiction to the point that she lost custody of her 2 children is questionable. IMPRESSION: 1. Polysubstance use disorder. [employer] stimulant, sedative hypnotic, cannabis. 2. History of opiate use disorder, according to her in remission. 3. Substance induced mood disorder. 4. Anxiety disorder unspecified. PLAN: At this time, patient does not meet criteria for inpatient psychiatric admission. The patient needs to be referred to her private psychiatrist, Dr. Garcia for medication. Also please give her [facility] phone number for dual diagnosis. Psychiatry will sign off at this point. Thank you for the consultation. MMODL / IJN: [id number] /
[2020-03-22] MEDS ORDERED: THIAMINE 100 MG TAB PO SCH (17:30)
== END 2020-03-28 14:48 | disposition home or self-care (01) ==
LOC: EC 18:25 → INTOOBSV 03-22 00:05 → 3SCARD 03-22 00:05 → 4SSUR 03-22 08:43 → UNDODISIN 03-22 12:10
PROVIDERS: ADMIT Hospitalist; ATTEND Hospitalist
DX: T43.621A Poisoning by amphetamines, accidental (unintentional), initial encounter (principal); R45.851 Suicidal ideations; F19.14 Other psychoactive substance abuse with psychoactive substance-induced mood disorder; F15.959 Other stimulant use, unspecified with stimulant-induced psychotic disorder, unspecified; T40.7X1A Poisoning by cannabis (derivatives), accidental (unintentional), initial encounter; F41.9 Anxiety disorder, unspecified; F41.0 Panic disorder [episodic paroxysmal anxiety]; R00.0 Tachycardia, unspecified; R41.82 Altered mental status, unspecified; Z98.890 Other specified postprocedural states; F43.10 Post-traumatic stress disorder, unspecified; F17.200 Nicotine dependence, unspecified, uncomplicated; B18.2 Chronic viral hepatitis C; D72.829 Elevated white blood cell count, unspecified; Z79.899 Other long term (current) drug therapy
CPT/HCPCS: 96376 ×2; 96361 ×4; 96372; 96374; 99285; 36415; 93005; 85379; 80053; 83605; 83735; 84484; 85025; 85610; 85730; 81001; 81025; 80306; 71046; G0378 ×8; G0480; J2060 ×2; J3411; J3486; 80320

== ENCOUNTER → 2022-12-11 | Outpatient (CLI) | payer OTHER ==
--- NOTE | 2022-12-13 19:40 | XR ---
EXAMINATION TYPE: XR chest 2V DATE OF EXAM: 12/11/2022 COMPARISON: 03/21/2020 HISTORY: 36-year-old female R05.9, possible TB exposure. TECHNIQUE: Frontal and lateral views FINDINGS: There appears to be some post surgical change at the right base with eventration anterior right hemid iaphragm. Additional postsurgical change right midlung. Heart normal size. Aorta and pulmonary vascul ature within normal limits. Mild pectus excavatum deformity. No consolidation or pleural effusion. IMPRESSION: Postsurgical changes right midlung and right base. Mild pectus excavatum deformity. No acute process seen.
== END | disposition home or self-care (01) ==
LOC: RADXRMAIN 16:58
PROVIDERS: ATTEND Emergency Medicine
DX: Q67.6 Pectus excavatum (principal); Z20.1 Contact with and (suspected) exposure to tuberculosis
CPT/HCPCS: 71046